=== PATIENT | male | born 1950 | race Caucasian/White ===

== ENCOUNTER 2018-11-01 00:16 | Inpatient (IN) | payer MEDICARE, BC ==
--- NOTE | 2018-11-01 00:19 | ED ---
CPR HPI - General Stated Complaint: cardiac Time Seen by Provider: 11/01/18 00:19 - History of Present Illness Initial Comments: Reinaldo is a 67 yo male with history of heart failure with AICD in place, he presents to the ED via EMS for evaluation after cardiac arrest. Per EMS they were dispatched for a complaint of chest pain, upon their arrival to the patient 's home the patient was unresponsive, son had began CPR. CPR was continued, the patient was intubated, he was treated per ACLS protocol, patient was given 4 rounds of epinephrine. The external defibrillator recommend no shock however EMS believes that the patient was shocked by his AICD multiple times. After 30 or so minutes of EMS CPR the patient regained spontaneous circulation. Upon arrival to the hospital the patient has strong spontaneous pulses, EKG suggests a ventricularly paced rhythm. Patient is intubated, he is breathing over the ventilator but is not coughing or fighting. He is requiring no sedation. Per family patient has extensive cardiac history. They've been told his heart functions at 10%. [facility] otherwise has been [facility]. He was working on his vehicle when he began to feel short of breath and complained of chest pain at which time 911 was called. - Related Data Home Medications Medication Instructions Recorded Confirmed Carvedilol 12.5 mg PO Q12H 11/01/18 11/01/18 Eplerenone 25 mg PO Q12H 11/01/18 11/01/18 Glucosamine Sulfate 500 mg PO BID 11/01/18 11/01/18 Iron 65 mg PO Q12H 11/01/18 11/01/18 [place]-3 Fatty Acids/Fish Oil [Fish 1 each PO DAILY 11/01/18 11/01/18 Oil 1,000 mg Softgel] Sacubitril/Valsartan [Entresto 24 1 each PO Q12H 11/01/18 11/01/18 mg-26 mg Tablet] Warfarin [Coumadin] 5 mg PO DAILY 11/01/18 11/01/18 Allergies Allergy/AdvReac Type Severity Reaction Status Date / Time No Known Allergies Allergy Verified 11/01/18 00:58 Review of Systems ROS Statement: Those systems with pertinent positive or pertinent negative responses have been documented in the HPI. ROS Other: All systems not noted in ROS Statement are negative. Past Medical History Past Medical History: Heart Failure - Past Family History Brother(s) Family Medical History: Renal Disease General Exam - General Exam Comments Initial Comments: GENERAL: Intubated HENT: Normocephalic, Atraumatic. EYES: Pupils 3 mm PULMONARY: Crackles in all lung mauricio Spontaneous respirations Bedside ultrasound suggestive of pulmonary edema CARDIOVASCULAR: Regular rate and rhythm, strong radial and DP PT pulses Warm and well perfused extremities Bedside echo with global hypokinesis ABDOMEN: Soft and nontender with normal bowel sounds. SKIN: Abrasion over mid sternum consistent with use of Ernie device and CPR NEUROLOGIC: Patient on ventilator not requiring any sedation Patient did have occasional cough, no corneal reflexes MUSCULOSKELETAL: No obvious injuries LYMPHATICS: No significant lymphadenopathy is noted PSYCHIATRIC: Unresponsive Limitations: no limitations Course Vital Signs 11/01/18 11/01/18 11/01/18 00:18 01:16 01:48 Temperature 94.8 F L 95.7 F L Pulse Rate 72 60 Respiratory 16 24 25 H Rate Blood Pressure 127/92 102/84 O2 Sat by Pulse 100 95 Oximetry 11/01/18 11/01/18 11/01/18 01:50 01:55 02:00 Temperature Pulse Rate 60 60 60 Respiratory 32 H 33 H 31 H Rate Blood Pressure 102/84 112/90 124/79 O2 Sat by Pulse 95 95 96 Oximetry 11/01/18 11/01/18 11/01/18 02:05 02:10 02:15 Temperature Pulse Rate 59 L 60 61 Respiratory 27 H 24 20 Rate Blood Pressure 124/84 146/84 126/78 O2 Sat by Pulse 97 96 94 L Oximetry 11/01/18 11/01/18 11/01/18 02:20 02:25 02:30 Temperature Pulse Rate 63 65 63 Respiratory 21 22 24 Rate Blood Pressure 110/87 142/84 124/81 O2 Sat by Pulse 97 99 99 Oximetry 11/01/18 11/01/18 02:35 03:00 Temperature Pulse Rate 67 80 Respiratory 16 20 Rate Blood Pressure 105/85 94/81 O2 Sat by Pulse 100 96 Oximetry Procedures - Chest Tube Insertion Consent Obtained: emergent situation Side of Procedure: right Indication: Pneumothorax Placed on monitor/pulse oximetry: Yes Site Prep: Chloroprep Local Anesthesia: Lidocaine 1% Amount (mLs): 4 Insertion Site: Midaxillary Scalpel: #10 Open into Pleural Space Using: May Clamp Tube Size (Martiniquais): 28 Returns: Air, Blood Sutured in Place: Yes Type of Suture: Polyester, Nylon Dressing Applied: 4x4, Tape Attached to Suction: Yes Type of Suction: Pleuravac Patient Tolerated Procedure: well Medical Decision Making - Medical Decision Making Patient was seen and evaluated immediately upon arrival to the emergency Department patient received approximately 30-40 minutes of CPR prior to arrival he had return of spiny his circulation, good blood pressure, stable heart rate, good end-tidal CO2 next Per EMS patient had been shocked by his AICD multiple times Initial EKG with ventricularly paced rhythm, right bundle branch block, no obvious ST elevations Patient care was discussed with interventional cardiology marketing communications specialist Dr. Paiz who recommends medical management admission to the ICU declines cardiac cath at this time Patient care was discussed with the network systems analyst Dr. Shields who agrees with plan for admission for management Patient with no primary care physician listed has never been seen in our emergency department before. Patient care was discussed with on-call medicine team doctor Todd who accepts the admission Patient's family arrived at bedside and reported that the patient follows at an urgent care for primary care and otherwise follows with cardiology out of [place] at this time there some emotional upset and they are unable to provide specifics. I will continue to admit the patient to the on-call medicine team. I was called by radiology for critical result of a small right-sided pneumothorax considering that the patient is on a ventilator I will place a chest tube Bandar provided verbal consent for chest tube Right-sided chest tube was placed, significant amount of air was released upon placement of the chest tube patient remained hemodynamically stable throughout the procedure The chest x-ray revealed some subcutaneous emphysema consistent with chest tube placement, resolution of the pneumothorax While in the emergency department patient's pulmonary edema seemed to worsen, IV Lasix was ordered Patient did have some agitation and coughing over the event therefore he was began on low-dose propofol Patient may no meaningful movements no meaningful responses Was updated on the patient's condition frequently throughout the ED stay. Head CT was ordered to evaluate any cerebral edema in the post arrest setting however it was decided the patient did not need this emergently and would benefit from being stabilized further in the intensive care unit patient was transferred to the ICU - Lab Data Result diagrams: 11/01/18 00:19 11/01/18 00:19 Lab Results 11/01/18 11/01/18 11/01/18 Range/Units 00:19 00:19 00:19 WBC 12.5 H (3.8-10.6) k/uL RBC 4.40 (4.30-5.90) m/uL Hgb 14.4 (13.0-17.5) gm/dL Hct 45.5 (39.0-53.0) % MCV 103.3 H (80.0-100.0) fL MCH 32.6 (25.0-35.0) pg MCHC 31.6 (31.0-37.0) g/dL RDW 12.3 (11.5-15.5) % Plt Count 166 (150-450) k/uL Neutrophils % (Manual) 62 % Band Neutrophils % 9 % Lymphocytes % (Manual) 19 % Monocytes % (Manual) 5 % Eosinophils % (Manual) 3 % Metamyelocytes % 2 % Neutrophils # (Manual) 8.80 H (1.3-7.7) k/uL Lymphocytes # (Manual) 2.38 (1.0-4.8) k/uL Monocytes # (Manual) 0.63 (0-1.0) k/uL Eosinophils # (Manual) 0.38 (0-0.7) k/uL Metamyelocytes # (Man) 0.25 H (0) k/uL Nucleated RBCs 0 (0-0) /100 WBC Manual Slide Review Performed Reactive Lymphocytes Present Hypochromasia Marked Macrocytosis Slight PT (9.0-12.0) sec INR (<1.2) APTT (22.0-30.0) sec Sodium 142 (137-145) mmol/L Potassium 4.5 (3.5-5.1) mmol/L Chloride 106 (98-107) mmol/L Carbon Dioxide 13 L (22-30) mmol/L Anion Gap 23 mmol/L BUN 21 H (9-20) mg/dL Creatinine 1.28 H (0.66-1.25) mg/dL Est GFR (CKD-EPI)AfAm 67 (>60 ml/min/1.73 sqM) Est GFR (CKD-EPI)NonAf 58 (>60 ml/min/1.73 sqM) Glucose 264 H (74-99) mg/dL POC Glucose (mg/dL) (75-99) mg/dL POC Glu Rn Disease Management ID Calcium 8.8 (8.4-10.2) mg/dL Magnesium 2.6 H (1.6-2.3) mg/dL Total Bilirubin 0.5 (0.2-1.3) mg/dL AST 211 H (17-59) U/L ALT 116 H (21-72) U/L Alkaline Phosphatase 71 (38-126) U/L Total Creatine Kinase 231 H (55-170) U/L CK-MB (CK-2) 7.4 H (0.0-2.4) ng/mL CK-MB (CK-2) Rel Index 3.2 Troponin I 0.327 H* (0.000-0.034) ng/mL Total Protein 6.3 (6.3-8.2) g/dL Albumin 3.8 (3.5-5.0) g/dL Urine Color Urine Appearance (Clear) Urine pH (5.0-8.0) Ur Specific [place] (1.001-1.035) Urine Protein (Negative) Urine Glucose (UA) (Negative) Urine Ketones (Negative) Urine Blood (Negative) Urine Nitrite (Negative) Urine Bilirubin (Negative) Urine Urobilinogen (<2.0) mg/dL Ur Leukocyte Esterase (Negative) Urine RBC (0-5) /hpf Urine WBC (0-5) /hpf Urine WBC Clumps (None) /hpf Urine Mucus (None) /hpf 11/01/18 11/01/18 11/01/18 Range/Units 00:19 00:22 00:43 WBC (3.8-10.6) k/uL RBC (4.30-5.90) m/uL Hgb (13.0-17.5) gm/dL Hct (39.0-53.0) % MCV (80.0-100.0) fL MCH (25.0-35.0) pg MCHC (31.0-37.0) g/dL RDW (11.5-15.5) % Plt Count (150-450) k/uL Neutrophils % (Manual) % Band Neutrophils % % Lymphocytes % (Manual) % Monocytes % (Manual) % Eosinophils % (Manual) % Metamyelocytes % % Neutrophils # (Manual) (1.3-7.7) k/uL Lymphocytes # (Manual) (1.0-4.8) k/uL Monocytes # (Manual) (0-1.0) k/uL Eosinophils # (Manual) (0-0.7) k/uL Metamyelocytes # (Man) (0) k/uL Nucleated RBCs (0-0) /100 WBC Manual Slide Review Reactive Lymphocytes Hypochromasia Macrocytosis PT 17.1 H (9.0-12.0) sec INR 1.7 H (<1.2) APTT 35.0 H (22.0-30.0) sec Sodium (137-145) mmol/L Potassium (3.5-5.1) mmol/L Chloride (98-107) mmol/L Carbon Dioxide (22-30) mmol/L Anion Gap mmol/L BUN (9-20) mg/dL Creatinine (0.66-1.25) mg/dL Est GFR (CKD-EPI)AfAm (>60 ml/min/1.73 sqM) Est GFR (CKD-EPI)NonAf (>60 ml/min/1.73 sqM) Glucose (74-99) mg/dL POC Glucose (mg/dL) 239 H (75-99) mg/dL POC Glu Rn Disease Management ID Lizzie Schwartz Calcium (8.4-10.2) mg/dL Magnesium (1.6-2.3) mg/dL Total Bilirubin (0.2-1.3) mg/dL AST (17-59) U/L ALT (21-72) U/L Alkaline Phosphatase (38-126) U/L Total Creatine Kinase (55-170) U/L CK-MB (CK-2) (0.0-2.4) ng/mL CK-MB (CK-2) Rel Index Troponin I (0.000-0.034) ng/mL Total Protein (6.3-8.2) g/dL Albumin (3.5-5.0) g/dL Urine Color Yellow Urine Appearance Turbid (Clear) Urine pH 6.5 (5.0-8.0) Ur Specific [place] 1.017 (1.001-1.035) Urine Protein 3+ H (Negative) Urine Glucose (UA) 1+ H (Negative) Urine Ketones Trace H (Negative) Urine Blood Moderate H (Negative) Urine Nitrite Negative (Negative) Urine Bilirubin Negative (Negative) Urine Urobilinogen <2.0 (<2.0) mg/dL Ur Leukocyte Esterase Negative (Negative) Urine RBC 56 H (0-5) /hpf Urine WBC 88 H (0-5) /hpf Urine WBC Clumps Few H (None) /hpf Urine Mucus Rare H (None) /hpf - EKG Data -: EKG Interpreted by Me EKG Comments: EKG with a rate of 72 rhythm is ventricularly paced with a right bundle branch block. Her significant respiratory artifact. There is no obvious ST elevations or depressions. Critical Care Time Critical Care Time: Yes Total Critical Care Time: 80 Critical Care Time: Critical Care Critical care time was exclusive of separately billable procedures and treating other patients. Critical care was necessary to treat or prevent imminent or life-threatening deterioration. Critical care was time spent personally by me on the following activities: development of treatment plan with patient or surrogate, discussions with consultants, discussions with primary provider, evaluation of patient's response to treatment, examination of patient, obtaining history from patient or surrogate, ordering and performing treatments and interventions, ordering and review of laboratory studies, ordering and review of radiographic studies, pulse oximetry, re-evaluation of patient's condition and review of old charts. Disposition Clinical Impression: Cardiac arrest Disposition: ADMITTED IP TO THIS [facility] Condition: Poor
[2018-11-01] MEDS ORDERED: SODIUM CHLORIDE 0.9% 1,000 ML IV STA (00:20)
[2018-11-01] MEDS ORDERED: HEPARIN SODIUM,PORCINE 5,000 UNIT/ML 1 ML VIAL IV STA (00:20)
[2018-11-01] MEDS ORDERED: PROPOFOL 1,000 MG in EMPTY BAG 1 BAG IV ONE (00:21)
[2018-11-01 00:24] LABS: Glucose,Whole Blood 239 mg/dL (75-99)
[2018-11-01] MEDS ORDERED: HEPARIN SOD,PORK IN 0.45% NACL 25,000 UNIT in 0.45% NACL 1 250ML.BAG IV SCH (00:30)
[2018-11-01 00:38] LABS: HCT 45.5 % (39.0-53.0); HGB 14.4 gm/dL (13.0-17.5); Hypochromasia Marked; MCH 32.6 pg (25.0-35.0); MCHC 31.6 g/dL (31.0-37.0); MCV 103.3 fL (80.0-100.0); Macrocytosis Slight; Mean Platelet Volume 7.9; Platelet Count 166 k/uL (150-450); RDW 12.3 % (11.5-15.5); WBC 12.5 k/uL (3.8-10.6)
[2018-11-01] MEDS ORDERED: ARTIFICIAL TEARS OINTMENT 3.5 GM TUBE BOTH EYES PRN (00:43)
[2018-11-01 00:48] LABS: Albumin 3.8 g/dL (3.5-5.0); Calcium 8.8 mg/dL (8.4-10.2); INR 1.7 (<1.2); Magnesium 2.6 mg/dL (1.6-2.3); Potassium 4.5 mmol/L (3.5-5.1); Prothrombin Time 17.1 sec (9.0-12.0); Total Bilirubin 0.5 mg/dL (0.2-1.3); Total Protein 6.3 g/dL (6.3-8.2)
--- NOTE | 2018-11-01 01:01 | ED ---
Medical Decision Making - Lab Data Result diagrams: 11/01/18 00:19 11/01/18 00:19 Lab Results 11/01/18 11/01/18 11/01/18 Range/Units 00:19 00: 00:19 WBC 12.5 H (3.8-10.6) k/uL RBC 4.40 (4.30-5.90) m/uL Hgb 14.4 (13.0-17.5) gm/dL Hct 45.5 (39.0-53.0) % MCV 103.3 H (80.0-100.0) fL MCH 32.6 (25.0-35.0) pg MCHC 31.6 (31.0-37.0) g/dL RDW 12.3 (11.5-15.5) % Plt Count 166 (150-450) k/uL PT (9.0-12.0) sec INR (<1.2) APTT (22.0-30.0) sec Sodium 142 (137-145) mmol/L Potassium 4.5 (3.5-5.1) mmol/L Chloride 106 (98-107) mmol/L Carbon Dioxide 13 L (22-30) mmol/L Anion Gap 23 mmol/L BUN 21 H (9-20) mg/dL Creatinine 1.28 H (0.66-1.25) mg/dL Est GFR (CKD-EPI)AfAm 67 (>60 ml/min/1.73 sqM) Est GFR (CKD-EPI)NonAf 58 (>60 ml/min/1.73 sqM) Glucose 264 H (74-99) mg/dL POC Glucose (mg/dL) (75-99) mg/dL POC Glu Rolling Mill Plugger ID Calcium 8.8 (8.4-10.2) mg/dL Magnesium 2.6 H (1.6-2.3) mg/dL Total Bilirubin 0.5 (0.2-1.3) mg/dL AST 211 H (17-59) U/L ALT 116 H (21-72) U/L Alkaline Phosphatase 71 (38-126) U/L Total Creatine Kinase 231 H (55-170) U/L Total Protein 6.3 (6.3-8.2) g/dL Albumin 3.8 (3.5-5.0) g/dL 11/01/18 11/01/18 Range/Units 00:19 00:22 WBC (3.8-10.6) k/uL RBC (4.30-5.90) m/uL Hgb (13.0-17.5) gm/dL Hct (39.0-53.0) % MCV (80.0-100.0) fL MCH (25.0-35.0) pg MCHC (31.0-37.0) g/dL RDW (11.5-15.5) % Plt Count (150-450) k/uL PT 17.1 H (9.0-12.0) sec INR 1.7 H (<1.2) APTT 35.0 H (22.0-30.0) sec Sodium (137-145) mmol/L Potassium (3.5-5.1) mmol/L Chloride (98-107) mmol/L Carbon Dioxide (22-30) mmol/L Anion Gap mmol/L BUN (9-20) mg/dL Creatinine (0.66-1.25) mg/dL Est GFR (CKD-EPI)AfAm (>60 ml/min/1.73 sqM) Est GFR (CKD-EPI)NonAf (>60 ml/min/1.73 sqM) Glucose (74-99) mg/dL POC Glucose (mg/dL) 239 H (75-99) mg/dL POC Glu [place] [employer] Plugger ID Lizzie Schwartz Calcium (8.4-10.2) mg/dL Magnesium (1.6-2.3) mg/dL Total Bilirubin (0.2-1.3) mg/dL AST (17-59) U/L ALT (21-72) U/L Alkaline Phosphatase (38-126) U/L Total Creatine Kinase (55-170) U/L Total Protein (6.3-8.2) g/dL Albumin (3.5-5.0) g/dL Disposition Clinical Impression: Cardiac arrest Disposition: ADMITTED IP TO THIS [facility] Condition: Poor Referrals: None,Stated [Primary Care Provider] - 1-2 days Procedures - Central Line Placement Left IJ Consent Obtained: verbal consent Patient Placed on Monitor/Pulse Ox: Yes Prep: mask, gown, gloves Central Line Prep: Povidone-Iodine 1% Ultrasound Used for Placement: Yes Central Line Lumen Inserted: triple Bloods Obtained for Lab: No Central Line Position: good blood return, all ports aspirated, flushed, capped, sutured in place with 3-0 nylon Dressing Applied: Tegaderm, sterile gauze/tape Post Procedure X-Ray: tip of catheter in good position Patient Tolerated Procedure: well Complications: none
--- NOTE | 2018-11-01 01:03 | XR ---
EXAM: XR Chest, 1 View CLINICAL HISTORY: ITS.REASON XR Reason: cardiac arrest CPR, intubation TECHNIQUE: Frontal view of the chest. COMPARISON: No relevant prior studies available. FINDINGS: Lungs: Prominent bilateral patchy and interstitial opacities suspicious for pulmonary edema. Underlying infection is possible. Pleural space: Then 7 mm right sided pneumothorax. Heart: Severe cardiomegaly. Mediastinum: Unremarkable. Bones/joints: Unremarkable. Tubes, lines and devices: Endotracheal tube tip is not well-visualized on this exam. 2-lead AICD overlying the left chest wall. There is what appears to be gastric tube terminating below the diaphragm, over the expected location of the stomach. IMPRESSION: 1. Endotracheal tube tip is not well-visualized on this exam. 2. Then 7 mm right sided pneumothorax. Close follow-up recommended. 3. Prominent bilateral patchy and interstitial opacities suspicious for pulmonary edema. Underlying infection is possible. Critical Value Communications 11/01/18 01:06 Call Doctor Regarding Pneumothorax, called Dr. Chin on 11/01 01:05 (-05:00)
[2018-11-01 01:05] LABS: Creatine Kinase MB 7.4 ng/mL (0.0-2.4)
[2018-11-01 01:06] LABS: Band Neutrophils % 9 %; Eosinophils # (M) 0.38 k/uL (0-0.7); Lymphocytes # (M) 2.38 k/uL (1.0-4.8); Metamyelocytes # (M) 0.25 k/uL (0); Metamyelocytes % 2 %; Monocytes # (M) 0.63 k/uL (0-1.0); Neutrophils % (M) 62 %; Nucleated Red Blood Cells 0 /100 WBC (0-0); Total Cells Counted 100
[2018-11-01 01:07] LABS: Appearance,Urine Turbid (Clear); Bilirubin,Urine Negative (Negative); Blood,Urine Moderate (Negative); Color,Urine Yellow; Glucose,Urine (UA) 1+ (Negative); Ketones,Urine Trace (Negative); Leukocyte Esterase,Urine Negative (Negative); Mucus,Urine Rare /hpf; Nitrite,Urine Negative (Negative); PH, Urine 6.5 (5.0-8.0); Protein,Urine 3+ (Negative); RBC,Urine 56 /hpf (0-5); Specific Gravity,Urine 1.017 (1.001-1.035); Urobilinogen,Urine <2.0 mg/dL (<2.0)
[2018-11-01 01:08] LABS: Reactive Lymphocytes Present
--- NOTE | 2018-11-01 01:16 | XR ---
EXAM: XR Chest, 1 View CLINICAL HISTORY: ITS.REASON XR Reason: Pain TECHNIQUE: Frontal view of the chest. COMPARISON: Chest x-ray dated 11/01/2018. FINDINGS: Lungs: Reidentified patchy and interstitial opacities throughout both lungs suspicious for pulmonary edema. Pleural space: The previously noted pneumothorax appears less prominent but appears persistent, measuring up to approximately 3 mm laterally currently. Given that the patient is supine, the degree of the pneumothorax would however not be well evaluated on this exam. Heart: Severe cardiomegaly. Mediastinum: Unremarkable. Bones/joints: Unremarkable. Tubes, lines and devices: A defibrillator pad is reidentified overlying the right lung, obscuring detail. Reidentified 2-lead AICD overlying the left chest wall, gastric tube below the diaphragm, and an endotracheal tube that appears to terminate 2 cm above the oz. There appears to be left-sided central venous catheter with tip projecting over the superior vena cava. IMPRESSION: 1. The previously noted pneumothorax appears less prominent but appears persistent, measuring up to approximately 3 mm laterally currently. Given that the patient is supine, the degree of the pneumothorax would however not be well evaluated on this exam. 2. Reidentified patchy and interstitial opacities throughout both lungs suspicious for pulmonary edema. underlying infection is possible.
[2018-11-01 01:37] LABS: ABG Base Excess -10.2 mmol/L; ABG HCO3 20 mmol/L (21-25); ABG Oxygen Saturation 98.4 % (94-97); ABG PCO2 64 mmHg (35-45); ABG PO2 163 mmHg (83-108); ABG TCO2 22 mmol/L (19-24)
[2018-11-01 01:45] LABS: ABG PH 7.09 (7.35-7.45)
[2018-11-01 01:46] LABS: Troponin I 0.327 ng/mL (0.000-0.034)
[2018-11-01] MEDS ORDERED: ATORVASTATIN 80 MG TAB OG-TUBE STA (01:51)
--- NOTE | 2018-11-01 01:54 | P.HPIM ---
History of Present Illness H&P Date: 11/01/18 Patient is a 67-year-old male with a PMH of nonischemic cardiomyopathy (EF 10%) status post AICD, on Coumadin (unknown reason) presented post cardiac arrest. History obtained from ED documentation and from family at the bedside. The patient was in his usual state of health until earlier today when he was working on his truck and began to feel short of breath. Shortness of breath gradually worsened over a period of roughly half an hour and the patient's son activated EMS however, the patient subsequently collapsed. The son started CPR on the patient, with a total duration of 10-15 minutes, at which time the EMS arrived and resumed CPR, receiving a total of 4 epinephrines, subsequent ROSC with a total down-time of 40 minutes. As per the ED documentation, the patient was never shocked by the AICD nor was a shock recommended by the EMS CPR kit. In the ED, the patient's blood pressure was 127/92, pulse 72, temperature 94.8, and SpO2 100% on mechanical ventilation 100% FiO2. A comprehensive workup was done, with WBC count 12.5, hemoglobin 14.4, platelets 166, INR 1.7, and creatinine 1.28. chest x-ray post intubation revealed a 7 mm right sided pneumothorax along with pulmonary edema. Chest tube was subsequently inserted by the ED physicians. Review of Systems Unable to perform, patient on the ventilator Past Medical History Past Medical History: Heart Failure History of Any Multi-Drug Resistant Organisms: None Reported Past Surgical History: Unable to Obtain Past Psychological History: No Psychological Hx Reported Smoking Status: Unknown if ever smoked Past Alcohol Use History: None Reported Past Drug Use History: None Reported Medications and Allergies Allergies Allergy/AdvReac Type Severity Reaction Status Date / Time No Known Allergies Allergy Verified 11/01/18 00:58 Physical Exam Vitals: Vital Signs Temp Pulse Resp BP Pulse Ox 11/01/18 00:18 94.8 F L 72 16 127/92 100 Intake and Output 10/31/18 10/31/18 11/01/18 14:59 22:59 06:59 Output Total 10 Balance -10 Output: Urine 10 Uretheral (Olivo) 10 Other: Weight 78.471 kg General: Male, on mechanical ventilation, in no acute distress, appears stated age Derm: no unusual rashes/lesions no unusual ecchymoses, warm, dry Head: atraumatic, normocephalic, symmetric Eyes: anicteric sclera, pupils 2 mm, sluggishly reactive to light ENT: Nose and ears atraumatic Neck: No thyromegaly, no cervical lymphadenopathy, trachea midline, supple Mouth: Endotracheal intubation Cardiovascular: S1S2 reg, no murmur, positive posterior tibial pulse bilateral, no edema, capillary refill less than 2 seconds Lungs: Bilateral rales and rhonchi, no accessory muscle use Abdominal: soft, no appreciable organomegaly, normal bowel sounds Ext: no gross muscle atrophy, no contractures Neuro: Patient unresponsive to noxious stimuli, gag reflex present Results CBC & Chem 7: 11/01/18 00:19 11/01/18 00:19 Labs: Abnormal Lab Results - Last 24 Hours (Table) 11/01/18 11/01/18 11/01/18 Range/Units 00: 00:19 00:19 WBC 12.5 H (3.8-10.6) k/uL MCV 103.3 H (80.0-100.0) fL Neutrophils # (Manual) 8.80 H (1.3-7.7) k/uL Metamyelocytes # (Man) 0.25 H (0) k/uL PT (9.0-12.0) sec INR (<1.2) APTT (22.0-30.0) sec Carbon Dioxide 13 L (22-30) mmol/L BUN 21 H (9-20) mg/dL Creatinine 1.28 H (0.66-1.25) mg/dL Glucose 264 H (74-99) mg/dL POC Glucose (mg/dL) (75-99) mg/dL Magnesium 2.6 H (1.6-2.3) mg/dL AST 211 H (17-59) U/L ALT 116 H (21-72) U/L Total Creatine Kinase 231 H (55-170) U/L Urine Protein (Negative) Urine Glucose (UA) (Negative) Urine Ketones (Negative) Urine Blood (Negative) Urine RBC (0-5) /hpf Urine WBC Clumps (None) /hpf Urine Mucus (None) /hpf 11/01/18 11/01/18 11/01/18 Range/Units : 00:22 00:43 WBC (3.8-10.6) k/uL MCV (80.0-100.0) fL Neutrophils # (Manual) (1.3-7.7) k/uL Metamyelocytes # (Man) (0) k/uL PT 17.1 H (9.0-12.0) sec INR 1.7 H (<1.2) APTT 35.0 H (22.0-30.0) sec Carbon Dioxide (22-30) mmol/L BUN (9-20) mg/dL Creatinine (0.66-1.25) mg/dL Glucose (74-99) mg/dL POC Glucose (mg/dL) 239 H (75-99) mg/dL Magnesium (1.6-2.3) mg/dL AST (17-59) U/L ALT (21-72) U/L Total Creatine Kinase (55-170) U/L Urine Protein 3+ H (Negative) Urine Glucose (UA) 1+ H (Negative) Urine Ketones Trace H (Negative) Urine Blood Moderate H (Negative) Urine RBC 56 H (0-5) /hpf Urine WBC Clumps Few H (None) /hpf Urine Mucus Rare H (None) /hpf Assessment and Plan Plan: Severe systolic CHF, status post cardiac arrest -As per ED documentation, case discussed with cardiology attending bacon slicer, who noted that the patient is not a candidate for catheterization -Continue with heparin infusion -Trend troponins -Cardiac monitoring -Cardiology consult -Aspirin, Plavix, Lipitor -Echocardiogram -Check A1c and lipid panels -C/w Ventilator bundle On Coumadin, unknown cause -Will need medical records from gyroscopic instrument tester -Currently on heparin infusion R sided Pneumothorax -S/p chest tube insertion -Repeat X-ray in am DVT//GI prophylaxis -Heparin infusion -Protonix The patient is admitted with an anticipated greater than 2 midnight stay for evaluation of post cardiac arrest. CODE STATUS: Full Code Discussed with: , daughter, son A total of 60 minutes was spent on the care of this complex patient more than 50 % of the time was spent in counseling and care coordination.
--- NOTE | 2018-11-01 01:56 | XR ---
EXAM: XR Chest, 1 View CLINICAL HISTORY: ITS.REASON XR Reason: Chest tube placement TECHNIQUE: Frontal view of the chest. COMPARISON: No relevant prior studies available. FINDINGS: Lungs: Reidentified patchy and interstitial opacities within both lungs suspicious for pulmonary congestion/edema. Underlying infection is possible. Pleural space: See below. Heart: Unremarkable. No cardiomegaly. Mediastinum: Unremarkable. Bones/joints: Unremarkable. Tubes, lines and devices: Interval placement of a right-sided pleural drainage catheter. There is marked subcutaneous emphysema within the right chest wall. The previously noted pneumothorax is not identified currently, however, evaluation is markedly limited by supine technique. All lines and tubes appear grossly stable in position, however, the distal tip of the ET tube is difficult to visualize. IMPRESSION: 1. Interval placement of a right-sided pleural drainage catheter. There is marked subcutaneous emphysema within the right chest wall. The previously noted pneumothorax is not identified currently, however, evaluation is markedly limited by supine technique. 2. Reidentified patchy and interstitial opacities within both lungs suspicious for pulmonary congestion/edema. Underlying infection is possible.
[2018-11-01] MEDS ORDERED: FUROSEMIDE 10 MG/ML 4 ML VIAL IV STA ×2 (02:31→10:00)
[2018-11-01 03:21] LABS: Glucose,Whole Blood 202 mg/dL (75-99)
[2018-11-01 03:29] LABS: Glucose,Whole Blood 189 mg/dL (75-99)
[2018-11-01] MEDS ORDERED: PROPOFOL 1,000 MG in EMPTY BAG 1 BAG IV SCH (03:30)
[2018-11-01 04:24] VITALS: BMI 24.1
[2018-11-01 05:05] LABS: ABG Base Excess -4.8 mmol/L; ABG HCO3 22 mmol/L (21-25); ABG Oxygen Saturation 99.9 % (94-97); ABG PCO2 51 mmHg (35-45); ABG PH 7.25 (7.35-7.45); ABG PO2 323 mmHg (83-108); ABG TCO2 24 mmol/L (19-24)
[2018-11-01 05:15] LABS: Basophils # (A) 0.1 k/uL (0-0.2); Basophils % (A) 0 %; Eosinophils # (A) 0.1 k/uL (0-0.7); Eosinophils % (A) 1 %; HGB 14.8 gm/dL (13.0-17.5); Lymphocytes # (A) 0.7 k/uL (1.0-4.8); Lymphocytes % (A) 4 %; MCHC 31.6 g/dL (31.0-37.0); Mean Platelet Volume 6.8; Monocytes # (A) 0.5 k/uL (0-1.0); Monocytes % (A) 2 %; Neutrophils # (A) 18.5 k/uL (1.3-7.7); Neutrophils % (A) 93 %; Platelet Count 203 k/uL (150-450); RBC 4.79 m/uL (4.30-5.90); RDW 12.6 % (11.5-15.5); WBC 19.9 k/uL (3.8-10.6)
[2018-11-01 05:20] LABS: MCV 98.1 fL (80.0-100.0)
[2018-11-01 05:24] LABS: Calcium 8.2 mg/dL (8.4-10.2); Magnesium 2.1 mg/dL (1.6-2.3); Phosphorus 5.2 mg/dL (2.5-4.5); Potassium 5.2 mmol/L (3.5-5.1)
[2018-11-01] MEDS ORDERED: ATORVASTATIN 80 MG TAB OG-TUBE SCH (09:00)
[2018-11-01] MEDS ORDERED: ASPIRIN 325 MG TAB OG-TUBE SCH (09:00)
[2018-11-01] MEDS ORDERED: PANTOPRAZOLE 40 MG/10 ML VIAL IV SCH (09:00)
[2018-11-01] MEDS ORDERED: ACETAMINOPHEN TAB 325 MG TAB PO PRN (09:45)
[2018-11-01] MEDS ORDERED: ACETAMINOPHEN TAB 500 MG TAB PO STA (09:45)
--- NOTE | 2018-11-01 10:10 | P.DS ---
Providers Date of admission: 11/01/18 00:59 Expected date of discharge: 11/01/18 Attending physician: Ezra Brooks MD Consults: 11/01/18 00:33 Consult Physician Stat Consulting Provider: Jackson Shields Consult Reason/Comments: vfib arrest, intubated Do you want consulting provider notified?: Already Contacted 11/01/18 00:43 Consult Physician Stat Consulting Provider: [facility] Consult Reason/Comments: cardiac arrest Do you want consulting provider notified?: Already Contacted Primary care physician: Stated None Hospital Course: Discharge Diagnosis: Probable anoxic encephalopathy myoclonic jerking verus less likely seizure activity Aborted sudden cardiac with return of spontaneous circulation Right sided pneumothorax s/p chest tube NSTEMI Mixed metabolic and repsiratoryu acidosis Transaminitis likely due to shock liver Acute vent dependent respiratory failure Hyperkalemia Known prior systolic cardiomyopathy with AICD in place. Hospital Course: Patient is a 67-year-old male past medical history of nonischemic cardiomyopathy with ejection fraction 10% per family status post AICD, hypertension, and Coumadin with unknown reason who arrived to the hospital after her return of spontaneous circulation. Apparently the patient had been complaining of chest pain and EMS was activated. The patient lost pulses and became unresponsive in the sun started bystander CPR. After EMS arrived there was 4 rounds of epinephrine administered as well as continuous CPR, he did not receive any defibrillation and had return of spontaneous circulation approximately 30 minutes. He was therefore brought into the ER. He was subsequently intubated in the central line was placed. He was noted that he had a right-sided pneumothorax and right-sided chest tube was placed. On arrival to the ER his vital signs demonstrate a blood pressure 127/92, pulse of 72, and respiration of 16. Cardiology was contacted who did not recommend urgent catheterization at this point in time as patient was having minimal neuro responses. Per ER records he was breathing over the vent had no cough, no gag, and no withdrawal to pain. He was subsequently admitted to the ICU. His family was alerted to his poor overall prognosis. He was started on a heparin drip. He did become slightly agitated and required the addition of propofol overnight. His troponin continued to rise and max of 5. On the morning of 11/01 his propofol had been decreased secondary to slightly low blood pressures. Approximately an hour and 45 minutes later he was noted to have myoclonic jerking in his upper and lower extremities. This jerking was asymmetric and involved the upper greater than the lower extremities. He has noted have a negative doll's eye, no cough, no gag but was breathing above the vent. His therefore requested that he be transferred for further neurologic evaluation for possible anoxic encephalopathy versus seizure activity as no neurology is available here. We requested transfer to [facility] for neuro evaluation. I spoke with Dr. Timothy Vizcarra who accepted the patient in transfer. During this process he spiked a fever and was given Tylenol and started on Zosyn for possible aspiration pneumonia. He was also noted to have a slightly elevated potassium at 5.2 and was given a dose of Lasix. He had elevated liver enzymes post cardiac arrest and repeat liver enzymes are currently pending. He was transferred in guarded condition. While had been contacted prior to initiation of transfer process was in agreement with transfer. Plan had been for hear CT here to assess for edema, however will delay to be done at accepting facility. Patient seen and examined at bedside. Unresponsive on vent. Vital signs reviewed and stable. General: non toxic, mod distress, appears at stated age Derm: warm, dry Head: atraumatic, normocephalic, symmetric Eyes: Pupils pinpoint and sluggishly reactive, negative doll's eye, anicteric sclera Mouth: no lip lesion, mucus membranes dry Cardiovascular: S1S2 reg, no murmur, positive posterior tibial pulse bilateral, Lungs: Coarse breath sounds bilateral, no rhonchi, no rales , no accessory muscle use Abdominal: soft, nontender to palpation, no guarding, no appreciable organomegaly Ext: no gross muscle atrophy, no edema, no contractures Neuro: Breathing over the vent, no cough, no gag, negative doll's eye, no withdrawal to pain in all 4 extremities, unable to elicit Babinski, myoclonic jerking activity noted in upper extremities greater than lower extremities which is asymmetric, it is elicited with downward deviation of the great toe on the left side Psych: Unresponsive on vent A total of 45 minutes of time were spent preparing this complex discharge summary . Patient Condition at Discharge: Poor Plan - Discharge Summary Discharge Rx Participant: No New Discharge Prescriptions: No Action Iron 65 mg PO Q12H Glucosamine Sulfate 500 mg PO BID Sacubitril/Valsartan [Entresto 24 mg-26 mg Tablet] 1 each PO Q12H [place]-3 Fatty Acids/Fish Oil [Fish Oil 1,000 mg Softgel] 1 each PO DAILY Eplerenone 25 mg PO Q12H Warfarin [Coumadin] 5 mg PO DAILY Carvedilol 12.5 mg PO Q12H Discharge Medication List Carvedilol 12.5 mg PO Q12H 11/01/18 [History] Eplerenone 25 mg PO Q12H 11/01/18 [History] Glucosamine Sulfate 500 mg PO BID 11/01/18 [History] Iron 65 mg PO Q12H 11/01/18 [History] [place]-3 Fatty Acids/Fish Oil [Fish Oil 1,000 mg Softgel] 1 each PO DAILY [History] Sacubitril/Valsartan [Entresto 24 mg-26 mg Tablet] 1 each PO Q12H 11/01/18 [ History] Warfarin [Coumadin] 5 mg PO DAILY 11/01/18 [History] Follow up Appointment(s)/Referral(s): None,Stated [Primary Care Provider] - 1-2 days
--- NOTE | 2018-11-01 10:12 | CONS ---
CONSULTATION This is a 67-year-old male who was admitted on the . The patient has a history of severe cardiomyopathy with ejection fraction of 10%, status post AICD placement, hypertension. The patient apparently had an [id number] cardiopulmonary arrest. There was bystander CPR provided by his son. The resuscitation time was somewhere between 20 and 30 minutes. He was intubated in the field. The patient apparently had been complaining all day of being short of breath and not being able to catch his breath. Currently, the patient is intubated in the ICU. The patient is currently on the assist-control mode rate of 24, tidal volume 450, FiO2 of 50%, PEEP of 5. Blood gases show pO2 of 323, a pCO2 of 51, pH 7.25. The blood gases were done on similar settings except the assist-control rate was 20 and the FiO2 was 100% now 50%. When those blood gases were obtained, the FiO2 was dropped from 100% to 50% and the rate was increased from 20 to 24 breaths per minute. The patient remains on saline at 100 mL an hour, propofol at 20 mcg/kg per minute and IV heparin. Chest x-ray shows evidence of CHF and cardiomegaly as well as a device. The patient had a right chest tube. Apparently, he sustained a right pneumothorax sometime in the process of resuscitation. Currently, the patient is having seizure activity or myoclonic jerks. Because he do not have neurology services here or anybody to interpret EEG in a timely fashion, the patient will be transferred either to [facility] or [facility]. Will alert the primary staff. Currently, the patient does not have a gag reflex. There is absent doll's eyes reflex. There is no response to pain. The patient is breathing over the ventilator. HOME MEDICATIONS: The home medications include iron, glucosamine, Entresto, omega-3 fatty acids, eplerenone, warfarin and Coreg. MEDICAL HISTORY: Medical history includes severe cardiomyopathy with ejection fraction of 10%, hypertension and an AICD placement. ALLERGIES: Negative. FAMILY HISTORY: Family history is positive for renal disease. SOCIAL HISTORY: Not known. OCCUPATION HISTORY: Not known. SURGICAL HISTORY: Not known. During the resuscitation phase, it should be pointed out that the patient did apparently receive a number of cardioversion/defibrillations and did receive multiple rounds of epinephrine. REVIEW OF SYSTEMS: Cannot be obtained because of the patient's mental status. PHYSICAL EXAMINATION: Current vital signs are reviewed. Temperature 97.9, heart rate 89, respiratory rate 34, blood pressure 80/62, mean 68, saturations 99%. Appears in no acute distress. The patient is having intermittent twitching activities which could relate to seizure and/or myoclonic jerks. HEENT examination is grossly unremarkable. Pupils are pinpoint and poorly responsive or nonresponsive. There is an orally placed endotracheal tube and NG tube. There is absent doll's eyes reflex. No obvious corneal reflex. NECK: Supple. Full range of motion. Cardiovascular examination reveals regular rhythm and rate. Heart rate in mid 80s. Heart sounds are distant. No murmurs noted. Lungs reveal some coarse diffuse bilateral rhonchi. No crackles. No wheeze. There is a right-sided chest tube. ABDOMEN: Soft. No bowel sounds are heard. Extremities are intact. No edema. Skin without rash. Neurologic examination as above. Neurologic exam cannot be adequately assessed, because he does not respond to pain. He does trigger the ventilator. His pupils are pinpoint and poorly responsive or nonresponsive. There is no pain response. There is absent doll's eyes. There is no gag reflex. LABORATORY DATA: Laboratory data includes a white count 19.9, hemoglobin 14.8, hematocrit 47.0, platelet count 203,000. Sodium 144, potassium 5.2, chloride 110, CO2 of 27, anion gap is 7. BUN and creatinine were 28 and 1.25. Troponins were initially 0.327 and then repeat was 5.040. Urine is noted. ASSESSMENT: 1. Status post [id number] cardiopulmonary arrest with cardiopulmonary resuscitation and eventual return of spontaneous circulation after multiple defibrillations and rounds of epinephrine, suspect anoxic brain injury. 2. Post cardiopulmonary arrest, routine ventilator management. 3. Rule out anoxic brain injury secondary to prolonged resuscitation. 4. Severe cardiomyopathy with ejection fraction of 10%. 5. History of hypertension. 6. Status post AICD placement. 7. Cardiomegaly/cardiomyopathy. 8. Rule out myocardial ischemia. 9. Rule out ongoing seizure activity versus intermittent myoclonic jerks. 10.Gastrointestinal bleed. PLAN: Overall prognosis is very poor. I think the patient should be transferred to a facility that has neurology coverage and continuous EEG monitoring. The patient will also need a CT scan of the brain which has not yet been done. We will alert the primary service. We will also alert community planner and social worker masters. His overall prognosis still remains poor. I will have the nurse talk to the family as well. Additional recommendations and suggestions are forthcoming. We will keep the patient currently on the 0.9 at 100 mL an hour and the propofol 20 mcg/kg per minute and IV heparin. Again prognosis is very poor. The right chest tube is not demonstrating any leak. MMODL / IJN: [id number] /
--- NOTE | 2018-11-01 11:21 | ECHOF ---
Referral Reason:CHF, post-cardiac arrest MEASUREMENTS -------- HEIGHT: 180.3 cm WEIGHT: 78.5 kg BP: 89/65 RVIDd: 3.0 cm (< 3.3) IVSd: 1.7 cm (0.6 - 1.1) LVIDd: 8.5 cm (3.9 - 5.3) LVPWd: 1.7 cm (0.6 - 1.1) IVSs: 2.1 cm LVIDs: 7.6 cm LVPWs: 2.5 cm LA Diam: 3.8 cm (2.7 - 3.8) Ao Diam: 3.6 cm (2.0 - 3.7) MV EXCURSION: 13.883 mm (> 18.000) MV EF SLOPE: 56 mm/s (70 - 150) EPSS: 0.5 cm MV E Jeffrey: 0.81 m/s MV DecT: 125 ms MV A Jeffrey: 0.79 m/s MV E/A Ratio: 1.02 RAP: 15.00 mmHg RVSP: 37.02 mmHg FINDINGS -------- Paced rhythm. This was a technically adequate study. The left ventricle is severely dilated. There is severe concentric left ventricular hypertrophy. Overall left ventricular systolic function is severely impaired with, an EF < 10%. The right ventricle is normal in size. The left atrial size is normal. The right atrium is normal in size. Aortic valve is trileaflet and is mildly thickened. The mitral valve leaflets are mildly thickened. Mild mitral annular calcification present. Modera [id number] mitral regurgitation is present. Mild tricuspid regurgitation present. There is mild pulmonary hypertension. The right ventricular systolic pressure, as measured by Doppler, is 37.02mmHg. The pulmonic valve was not well visualized. The aortic root size is normal. The inferior vena cava is dilated with no significant inspiratory collapse which is consistent estima campbell right atrial pressure of >15 mmHg. There is no pericardial effusion. CONCLUSIONS -------- 1. Paced rhythm. 2. This was a technically adequate study. 3. Overall left ventricular systolic function is severely impaired with, an EF < 10%. 4. The right ventricle is normal in size. 5. The left atrial size is normal. 6. The right atrium is normal in size. 7. Aortic valve is trileaflet and is mildly thickened. 8. The mitral valve leaflets are mildly thickened. 9. Mild mitral annular calcification present. 10. Itozmnqb-[id number] mitral regurgitation is present. 11. Mild tricuspid regurgitation present. 12. There is mild pulmonary hypertension. 13. The right ventricular systolic pressure, as measured by Doppler, is 37.02mmHg. 14. The pulmonic valve was not well visualized. 15. The aortic root size is normal. 16. The inferior vena cava is dilated with no significant inspiratory collapse which is consistent es timated right atrial pressure of >15 mmHg. 17. There is no pericardial effusion. ENGINEER EXHAUSTER: Maria Teresa Yepez RDCS
[2018-11-01] MEDS ORDERED: PIPERACILLIN-TAZOBACTAM 3.375 GM in SODIUM CHLORIDE 0.9% 100 ML IVPB SCH (12:00)
[2018-11-01] MEDS ORDERED: IPRATROPIUM-ALBUTEROL 3 ML NEB INHALATION SCH (12:00)
[2018-11-01] MEDS ORDERED: NOREPINEPHRINE 32 MG in SODIUM CHLORIDE 0.9% 218 ML IV STA (12:13)
--- NOTE | 2018-11-01 12:30 | CONS ---
CONSULTATION Mr. Ponce is a 67-year-old gentleman who is seen for cardiac evaluation. The patient's medical records reviewed. The history obtained from the family members and the patient examined in the presence of nurse as well as family members. This patient has a known history of severe cardiomyopathy with ejection fraction of 10% and history of AICD placement. The patient had been doing fairly well, but yesterday he felt he was short of breath and developed respiratory distress and subsequently patient had a cardiac arrest. When the EMS arrived, the patient probably had shock, CPR. The CPR was continued for about 20 to 25 minutes and subsequently the blood pressure was obtained. The patient was brought to the emergency room. In the emergency room, it showed evidence of the paced rhythm. The patient also had a right chest tube placed in because of the pneumothorax. This patient at present remains unresponsive and he is having intermittent myoclonus jerk. HOME MEDICATIONS: Patient's home medications include glucosamine, Entresto, warfarin, and Coreg. PHYSICAL EXAMINATION: Physical examination at present reveals a 67-year-old gentleman who is not responsive. He has been intermittent jerky movement. The pupils are pinpoint and poorly responsive or not responsive. HEENT examination is negative. HEART: First and second heart sounds are normal. Lungs reveal bilateral diffuse rhonchi and wheezing. Abdomen is soft. EXTREMITIES: Peripheral pulses are 1+. EKG shows normal sinus rhythm with ventricular pacing. The patient's chest x-ray is suggestive of pulmonary edema. The patient's initial troponin was 0.327. The repeat troponin is 5.08. Echocardiogram reveals a severely impaired left ventricular systolic function with ejection fraction less than 20%. Initial blood gases showed pH of 7.09. Subsequent blood gases shows pH of 7.25. Creatinine is 1.25. FINAL IMPRESSION: 1. This patient is status post acute cardiorespiratory arrest secondary to pulmonary edema. 2. The patient has severe cardiomyopathy with AICD placement. 3. The patient has evidence of severe anoxic encephalopathy. 4. The patient's troponin elevation could be most likely secondary to cardiorespiratory arrest and shocks. The patient's prognosis remains very poor. In view of the severe anoxic encephalopathy, patient is going to be transferred to the [facility] for EEG monitoring and neurological evaluation. MMODL / IJN: [id number] /
[2018-11-01 13:16] VITALS: BP 81/59; PULSE 92; RESP 28; TEMP 99.5
[2018-11-01 13:30] LABS: Hemoglobin A1C 5.9 % (4.0-6.0)
== END 2018-11-01 14:23 | disposition short-term general hospital (02) | DRG 280 ==
LOC: EC 00:16 → 2SICU 00:59
PROVIDERS: ADMIT Internal Medicine; ATTEND Internal Medicine
PROC: 0W9930Z Drainage of Right Pleural Cavity with Drainage Device, Percutaneous Approach (ICD-10-PCS; principal; 2018-11-01)
PROC: 02HV33Z Insertion of Infusion Device into Superior Vena Cava, Percutaneous Approach (ICD-10-PCS; principal; 2018-11-01)
PROC: 5A1935Z Respiratory Ventilation, Less than 24 Consecutive Hours (ICD-10-PCS; principal; 2018-11-01)
PROC: 0BH18EZ Insertion of Endotracheal Airway into Trachea, Via Natural or Artificial Opening Endoscopic (ICD-10-PCS; principal; 2018-11-01)
DX: I11.0 Hypertensive heart disease with heart failure (principal); I21.4 Non-ST elevation (NSTEMI) myocardial infarction; I49.01 Ventricular fibrillation; J96.00 Acute respiratory failure, unspecified whether with hypoxia or hypercapnia; K72.00 Acute and subacute hepatic failure without coma; J69.0 Pneumonitis due to inhalation of food and vomit; E87.2 Acidosis; G93.1 Anoxic brain damage, not elsewhere classified; J93.9 Pneumothorax, unspecified; T79.7XXA Traumatic subcutaneous emphysema, initial encounter; Z99.11 Dependence on respirator [ventilator] status; I50.23 Acute on chronic systolic (congestive) heart failure; E87.5 Hyperkalemia; I42.9 Cardiomyopathy, unspecified; R56.9 Unspecified convulsions; Z79.01 Long term (current) use of anticoagulants; Z95.810 Presence of automatic (implantable) cardiac defibrillator; Z79.899 Other long term (current) drug therapy
CPT/HCPCS: 32551; 36415; 36556; 36600; 71045; 80048; 80053; 80061; 81001; 82550; 82553; 82805; 83036; 83735; 84100; 84484; 85025; 85610; 85730; 87040; 87086; 93005; 93306; 94002; 94640; 96361; 96365; 96366; 96368; 96375; 96376; 99291; 99292